=== PATIENT | female | born 1985 | race Caucasian/White ===

== ENCOUNTER → 2017-08-01 13:53 | Outpatient (CLI) | payer MEDICAID, SELFPAY ==
--- NOTE | 2017-07-31 | EMB_PTH ---
PATIENT: RAY ANGEL LOC: [facility] U#:[id number] AGE/SX: 39/F ROOM: RE08/01/[address]: Dr. Marco A Sharma MD : 1985 BED: DIS: SPEC #: [id number] RECD: 08/01/17 13:49 STATUS: CORTES AUGUSTINE #: [id number] GLADIS: 07/31/17 00:[address]: Marco A Sharma DEPT: SURGICAL PATHOLOGY RECD BY: Ervin Craig Tissues: Endometrium, NOS Procedures: Surgery Specimen Level IV HEADER OPERATION: Endometrial biopsy PRE-OP DIAGNOSIS: Uterine mass TISSUE SUBMITTED: Endometrial biopsy MICROSCOPIC DIAGNOSIS Endometrium, biopsy: Secretory endometrium. AM:scott 08/02/17 MICROSCOPIC DESCRIPTION Slides are reviewed. GROSS DESCRIPTION Received in fixative is one container labeled with the patient's name and designated endometrial biopsy. The specimen consists of multiple irregular fragments of pink-red soft tissue that in aggregate measure 2.5 x 2 x 0.2 cm. The specimen is totally submitted in one cassette. / RAMON:scott 08/01/17 TC:5 CPT: 54091
[2017-08-03 11:36] LABS: HPV Reflexed? NOT INDICATED
== END ==
PROVIDERS: Visit Provider Obstetrics & Gynecology
DX: Z12.4 Encounter for screening for malignant neoplasm of cervix (principal); N85.8 Other specified noninflammatory disorders of uterus
CPT/HCPCS: 88175; 88305; G0145

== ENCOUNTER → 2017-11-20 07:59 | Outpatient (CLI) | payer MEDICAID, SELFPAY | PROVIDERS: Family Provider Family Medicine; PCP Family Medicine; Visit Provider Obstetrics & Gynecology | DX: Z53.9 Procedure and treatment not carried out, unspecified reason (principal) ==

== ENCOUNTER → 2018-12-14 | Outpatient (CLI) | payer MEDICAID, SELFPAY ==
[2016-05-12 11:41] VITALS: BMI 23.8
[2018-12-14 10:36] LABS: Hematocrit 44.5 % (37-47); Hemoglobin 14.9 g/dL (12.0-15.0); Mean Corp Hgb Conc 33.5 g/dL (32-36); Mean Corpuscular Hgb 32.3 pg (27.0-32.0); Mean Corpuscular Volume 96.5 fL (81-99); Mean Platelet Vol. 9.3 fl (6.2-12.0); Platelet Count 243 K/mm3 (150-450); RBC Distribution Width CV 13.3 % (11.6-14.6); RBC Distribution Width SD 47.7 fl (35.1-43.9); Red Blood Count 4.61 M/mm3 (4.2-5.4); White Blood Count 9.3 K/mm3 (4.4-11.0)
== END | disposition home or self-care (01) ==
LOC: LAB 10:24
PROVIDERS: Family Provider Family Medicine; PCP Family Medicine; Referring Provider Obstetrics & Gynecology; Visit Provider Obstetrics & Gynecology
DX: R58 Hemorrhage, not elsewhere classified (principal)
CPT/HCPCS: 36415; 85027

== ENCOUNTER 2019-04-21 06:29 | Inpatient (IN) | payer MEDICAID, SELFPAY ==
[2019-04-17 14:45] LABS: Hematocrit 43.7 % (37-47); Hemoglobin 14.2 g/dL (12.0-15.0); Mean Corp Hgb Conc 32.5 g/dL (32-36); Mean Corpuscular Hgb 30.7 pg (27.0-32.0); Mean Corpuscular Volume 94.4 fL (81-99); Mean Platelet Vol. 9.8 fl (6.2-12.0); Platelet Count 246 K/mm3 (150-450); RBC Distribution Width CV 12.9 % (11.6-14.6); RBC Distribution Width SD 44.4 fl (35.1-43.9); Red Blood Count 4.63 M/mm3 (4.2-5.4); White Blood Count 8.1 K/mm3 (4.4-11.0)
[2019-04-17 14:54] LABS: International Normalized Ratio 1.1; Prothrombin Time (Protime)PT. 13.5 SECONDS (11.7-14.9)
[2019-04-17 14:55] LABS: Partial Thromboplast Time 28.7 Seconds (24.1-36.2)
[2019-04-17 15:04] LABS: Creatinine, Serum 0.79 mg/dL (0.55-1.02); EST Glomerular Filtration Rate 89 mL/min (>60); Est Glom Filt Rate - Afr Amer 108 mL/min (>60)
--- NOTE | 2019-04-20 19:03 | PCM.HP.BLA ---
History and Physical Date of Admission: 04/21/19 Surgical History and Physical Minnie Carter, a 33 year old female 3 0 0 0 3, presents for ROMULO/BS on April 21, 2018 at 7:30. -- Large Symptomatic Fibroids; Menorrhagia; Large Symptomatic Uterine Fibroid -- Pt complaint of Pelvic and abdominal pain that is random but states it gets severe and doubles her over. 7-8 cm uterine fibroids with heavy menses and pelvic pressure and pain. Discussed that HTA not appropriate for helping with her heavy menses. Bleeding excessive. Minnie claims it started gradually and occurs all the time. It is located in the vagina. It is located in the lower abdomen. Minnie characterizes it to be non-radiating. Minnie characterizes the quality bleeding from light to moderate to heavy. Severity is moderate and not improving. Additional comments are: Hgb in ER [place]; known extremely large fibroids and uterus. MEDICATIONS HISTORY: Patient is also takin. No Meds ALLERGIES: NKDA Infections - Chicken pox Illnesses - none Accidents - no injuries of consequence Hospitalizations - Childbirth Review of Systems: GENERAL - Denies fever, or chills SKIN - Denies skin changes EYES - Denies visual changes EARS - Denies difficulty hearing NOSE - Denies nasal congestion or bleeding MOUTH - Denies sore throat or difficulty swallowing NECK - Denies pain or swelling RESPIRATORY - Denies shortness of breath or wheezing CARDIOVASCULAR - Denies palpitations or chest pain GASTROINTESTINAL - Denies nausea, vomiting, diarrhea, constipation GENITOURINARY - Denies dysuria, frequency of urination, incontinence of urine MUSCULOSKELETAL - Denies joint or muscle pain NEUROLOGICAL - Denies localized numbness or weakness PSYCHIATRIC - Denies depression or anxiety ENDOCRINE - Denies heat or cold intolerance, weight loss or gain HEMATO-IMMUNOLOGIC - Denies excesive bleeding with cuts SOCIAL HISTORY: Alcohol Use - RARELY Smoking - 04/19-1 ppd ATQ Diet - no special diet Lifestyle - low stress lifestyle and single Exercise - active work Seat Belt Use - always Employer - [employer] 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 Maternal Grandmother: blood clots in legs and Cerebrovascular accident(CVA). Paternal Grandfather: from [place] and Coronary heart disease. MENSTRUAL HISTORY: LMP Known?- DefiniteAmount/Duration - 14+, Regularity - Irregular, Frequency - 14-28 days days, LMP - 04/16/18, Age Onset Menarche - 12 PAST PREGNANCIES: Total Pregnancies - 3; Full Term Pregnancies - 3; Premature - 0; Abortions, Induced - 0; Abortions, Spontaneous - 0; Ectopics - 0; Multiple Births - 0; Living Children - 3 SURGICAL HISTORY: 1. 05/15/2016 and tubal ; America Logan M.D. PHYSICAL EXAM BP- 120/72 Sitting, Right arm, regular cuff Weight- 135 lbs Height- 69 inch BMI:19.98 CONSTITUTIONAL - NAD, well nourished, and well developed SKIN - No rash, lesions, or ulcers HEENT - Normocephalic, PERRLA, EOMI NECK - No nodes, no nuchal rigidity and thyroid normal size and texture LYMPH NODES - Palpation of lymph nodes in neck and groins within normal limits LUNGS - CTA x2 without wheezes, crackles or rales CARDIAC - Regular rate and rhythm without rubs, murmurs, or gallops BREAST - deferred ABDOMEN - Without hepatosplenomegaly, distention, masses, rebound, or guarding; normal bowel sounds; no hernias EXTREMITIES - No edema or calf tenderness NEUROLOGICAL - Cranial nerves II-XII grossly intact PSYCHIATRIC - A and O to time, place, person, mood and affect DETAILED PELVIC EXAM External Genitial Vagina - non-tender without lesions Urethra/Urethral Meatus - non-tender Bladder - non-tender Vagina - vaginal sinha are pink and moist without loss of rugae and no evidence of atropy Cervix - without cervical motion tenderness and has normal size and features without evident lesions Uterus - enlarged uterus 12+ wks, wt 280-320 g Adnexa - mass c/w large fibroid noted in cul-de-sac ASSESSMENT/PLAN: 1. Leiomyoma Of Uterus, Unspecified and Menorrhagia Reviewed results of CT showing likely 6-8 cm fibroid; fibroid noted at time of last . Extremely heavy menses and painful when moving. Wants hysterectomy. Plan ROMULO/BS. Discussed RBAs. Too large for RAVH so plan abdominal hysterectomy for heavy menses and symptomatic fibroid. Aygestin taper given.
[2019-04-21] VITALS (12 sets, daily range): BP systolic 94–131; BP diastolic 57–74; PULSE 53–74; RESP 14–18; TEMP 36.5–37; O2SAT 94–100; BMI 19.1
[2019-04-21] MEDS: Lactated Ringers 1,000 ML 100 ML IV ×2 (07:17→09:30)
--- NOTE | 2019-04-21 08:30 | HYST_PTH ---
PATIENT: RAY ANGEL LOC: [facility] U#:[id number] AGE/SX: 33/F ROOM: MS311 RE04/21/[address]: Dr. Marco A Sharma MD : 1985 BED: 1 DIS: 04/22/2019 SPEC #: [id number] RECD: 04/21/19 11:07 STATUS: CORTES [place] #: [id number] GLADIS: 04/21/19 08:[address]: Marco A Sharma DEPT: SURGICAL PATHOLOGY RECD BY: Constantino Noel ENTERED: 04/21/19 13:21 SP TYPE: HYSTERECT OTHR DR: Dr. Damian Bah MD Tissues: Uterus, NOS Procedures: Surgery Specimen Level V HEADER OPERATION: Hysterectomy, ROMULO, salpingectomy PRE-OP DIAGNOSIS: Leiomyoma of uterus; menorrhagia TISSUE SUBMITTED: Uterus and bilateral fallopian tubes MICROSCOPIC DIAGNOSIS Uterus and bilateral fallopian tubes, hysterectomy and bilateral salpingectomy: Cervix - mild chronic inflammation. Endometrium - proliferative endometrium. Myometrium - intramural leiomyomas (0.2 and 8 cm in diameter). Bilateral fallopian tubes - no pathologic diagnosis. See comment. SJ:scott 04/22/19 COMMENT The larger leiomyoma also shows focal areas of symplastic change. Case has been reviewed in consultation with Dr. Thornton who concurs with the above diagnosis. IDC:AM MICROSCOPIC DESCRIPTION Slides are reviewed. GROSS DESCRIPTION Received in fixative is one container labeled with the patient's name and designated uterus and bilateral fallopian tubes. The specimen consists of a hysterectomy specimen consisting of uterus with cervix with attached bilateral fallopian tubes. The uterus with cervix weighs 330 gm and measures 14 x 10 x 7 cm. The serosal surface is torres, glistening. The ectocervical mucosa is unremarkable. The external os is oval in contour. The endocervical canal measures 3.5 cm in length and the endocervical mucosa is torres, glistening and unremarkable. The triangular endometrial cavity measures 6.5 cm in length and 3 cm in width. The endometrium is torres, glistening without any mass lesion and measures 0.1 cm in thickness. Sections of the uterine wall reveal one large nodular mass at the fundus measuring 8 cm in diameter and one smaller nodular mass in the posterior wall measuring 0.2 cm in diameter. Sections of these masses reveal torres whorled cut surfaces without areas of hemorrhage, necrosis or cystic degeneration. The uninvolved uterine wall measures up to 2 cm in thickness. The right fallopian tube measures 7 cm in length and 0.5 cm in diameter. The fimbrial end is identified. A Filshie clip is noted at the proximal end which appears intact. Sections reveal unremarkable cut surfaces. The left fallopian tube is similar in appearance to right and measures 7 cm in length and 0.6 cm in diameter. A Filshie clip is also noted in the left fallopian tube and this appears intact. Client Services Analyst sections are submitted in ten cassettes as follows: 1 - anterior cervix, 2 - posterior cervix, 3 & 4 - anterior uterine wall, 5 & 6 - posterior uterine wall (cassette 5 also contains the smaller nodular mass), 7 & 8 - larger nodular mass, 9 - right fallopian tube, 10 - left fallopian tube. / RAMON:scott 04/21/19 TC:1 CPT: 80022
--- NOTE | 2019-04-21 08:57 | PCM.OPRPT ---
Report of Operation Date of Procedure: 04/21/19 Pre-Operative Diagnosis: Symptomatic Large Uterine Fibroids Post-Operative Diagnosis: Symptomatic Large Uterine Fibroids Surgery/Procedure Performed:: Total Abdominal Hysterectomy, Bilateral Salpingectomy Description of Surgical Findings:: 16 cm fibroid uterus with normal-appearing fallopian tubes and ovaries. Evidence of bilateral tubal occlusion previously with Filshie clips. market analysis director: Neptali Lamar Type of Anesthesia:: General - Endotracheal Anesthesiologist: Sandra Denton Specimen's removed: Uterus and bilateral fallopian tubes Estimated Blood Loss (mL): 100 cc Fluids Replaced: Crystalloid Description of Procedure: Surgeon: Marco A Sharma MD, FACOG Indications: This is a 33-year-old patient who his been having problems with pelvic pressure and occasional pain when she moves. She is known to have a large uterine posterior fibroid. Given this the patient desires that we proceed with the above procedure. She has been counseled regarding the risk and indications of this procedure including the possibility of bleeding, infection, and injury to surrounding structures such as bowel bladder. All questions were answered. Procedure: Patient was taken to the operating room where after induction of general anesthesia she was prepped and draped in the usual sterile fashion. A Thompson catheter was placed. The abdomen was entered through a Pfannenstiel incision and peritoneal cavity was entered bluntly. Round ligaments were identified and ligated with 0 Vicryl suture. Mesosalpinx were ligated with 0 Vicryl suture. A bladder flap was developed and progressive bites were then taken down on either side of the uterine cervix ligating each pedicle with 0 Vicryl suture. Final bites across the vaginal cuff incorporated the uterosacral ligaments into the vaginal cuff using 0 Vicryl suture and multiple [id number] sutures were placed across the vaginal cuff. Vaginal cuff and pelvic sidewall pedicles were oversewn where necessary to achieve hemostasis. Pelvis was copiously irrigated removing all clot. Rectus abdominis muscles were reapproximated in the midline with interrupted 0 Vicryl suture. 0 PDS strata fix was used to close the fascia in a running fashion and subcutaneous tissue was copiously irrigated with saline solution before closing with 3-0 Vicryl suture. 3-0 Monocryl suture was then used in running fashion to reapproximate skin edges area and Steri-Strips placed across the incision. Patient tolerated the procedure well was taken to recovery room in satisfactory condition; sponge instrument and needle counts were all reportedly correct. Estimated blood loss for the case was minimal. Cefotan 2 g IV was given prior to beginning the operative procedure. There were no apparent complications of the surgery. Specimen to pathology was uterus and bilateral fallopian tubes. Grafts/Implants Used: None - Complications None - Admit VTE Documentation VTE Present on Admission: Yes VTE Mechan Device Prophylaxis: SCD's VTE Pharm Prophylaxis ordered?: Yes
--- NOTE | 2019-04-21 09:01 | PCM.DC.VHY ---
Discharge Diet: No Restrictions Discharge Activity: Return to Normal Activity, May Not Drive - while taking narcotic pain medications., May Shower, May Take a Tub Bath May resume sexual activity in: 6-8 weeks Call your doctor if your incision/area has: Continuous Slow Oozing, Sudden Increased Bleeding, Increased Pain/ Swelling, Increased Redness, Foul Smelling Discharge Call your doctor if you observe: Fever of 101 or Higher, Inability to urinate, Inability to have a bowel movement, Using more than one pad per hour Allergies/Adverse Reactions: Allergies No Known Allergies Allergy (Verified 04/21/19 07:08) Medications to take at Discharge Amoxicillin/Potassium Clav [Amox-Clav 875-125 mg Tablet] 1 ea PO BID 04/14/19 Ibuprofen [Ibu] 600 mg PO BID 04/14/19 Docusate Sodium [Colace] 100 mg PO BID PRN PRN #60 cap 04/21/19 Oxycodone [Oxyir] 5 mg PO Q6H PRN PRN 7 Days #14 tablet 04/21/19 The following prescriptions were given: Docusate Sodium [Colace] 100 mg PO BID PRN PRN #60 cap PRN Reason: Constipation Transmission Status: Pending to [facility] Oxycodone [Oxyir] 5 mg PO Q6H PRN PRN 7 Days #14 tablet PRN Reason: Pain Score 6-10/10 Transmission Status: Sent to [facility] Primary Care Physician: Damian Bah MD [Primary Care Provider] - Test Results: Test results from this visit will be discussed in further detail at your follow-up appointment, if applicable. Please Follow Up With: Marco A Sharma MD When: 2 to 3 weeks
[2019-04-21] MEDS: HYDROmorphone 0.5 MG/0.5 ML SYRINGE IV (12:28)
[2019-04-21] MEDS: Dextrose 5%-Lactated Ringers 1,000 ML 150 ML IV ×2 (12:33→18:56)
[2019-04-21] MEDS: Acetaminophen 500 MG Tablet 1000 MG PO (15:00)
[2019-04-21] MEDS: oxyCODONE 5 MG Tablet PO ×3 (15:00→23:02)
[2019-04-21] MEDS: Ketorolac 30 MG/ML Syringe IV ×2 (16:41→23:01)
[2019-04-21] MEDS: 0.9% Saline Lock 10 ML Syringe IV (16:45)
[2019-04-21] MEDS: Enoxaparin 30 MG/0.3 ML Syringe SC (18:57)
[2019-04-22 03:45] VITALS: BP 104/68; PULSE 53; RESP 18; TEMP 37.4; O2SAT 100
[2019-04-22] MEDS: Ketorolac 30 MG/ML Syringe IV (03:50)
[2019-04-22] MEDS: Acetaminophen 500 MG Tablet 1000 MG PO (04:15)
[2019-04-22] MEDS: 0.9% Saline Lock 10 ML Syringe IV (04:20)
[2019-04-22 05:30] LABS: Hematocrit 36.7 % (37-47); Hemoglobin 11.8 g/dL (12.0-15.0); Mean Corp Hgb Conc 32.2 g/dL (32-36); Mean Corpuscular Hgb 30.8 pg (27.0-32.0); Mean Corpuscular Volume 95.8 fL (81-99); Platelet Count 238 K/mm3 (150-450); RBC Distribution Width CV 12.9 % (11.6-14.6); RBC Distribution Width SD 45.6 fl (35.1-43.9); Red Blood Count 3.83 M/mm3 (4.2-5.4); White Blood Count 14.3 K/mm3 (4.4-11.0)
[2019-04-22 05:43] LABS: Creatinine, Serum 0.91 mg/dL (0.55-1.02)
[2019-04-22 05:44] LABS: EST Glomerular Filtration Rate 76 mL/min (>60); Est Glom Filt Rate - Afr Amer 92 mL/min (>60)
[2019-04-22 07:39] VITALS: O2SAT 99
--- NOTE | 2019-04-22 08:38 | PCM.PN.OB ---
Subjective: Patient without complaints. Tolerating diet well. Up in halls ambulating. Ready to go home. Voiding on own. - Physical Exam Vitals/I&O's: Vital Signs Temp Pulse Resp BP Pulse Ox 99.3 F H 53 L 18 104/68 100 04/22/19 03:45 04/22/19 03:45 04/22/19 03:45 04/22/19 03:45 04/22/19 03:45 Oxygen Delivery Method Room Air Weight: 136 lb 14.513 oz Body Mass Index (BMI) 19.1 Intake and Output for Last 24 Hours 04/20/19 04/21/19 04/22/19 23:59 23:59 23:59 Intake Total 3767.5 / 4267.5 500 / 500 Output Total 850 / 2350 1700 / 1700 Balance 2917.5 / 1917.5 -1200 / -1200 Comment: Is CDI. Good urine output. Hemoglobin and creatinine okay. Laboratory Results 04/22/19 05:10: WBC 14.3 H, RBC 3.83 L, Hgb 11.8 L, Hct 36.7 L, MCV 95.8, MCH 30.8, MCHC 32.2, RDW Std Deviation 45.6 H, RDW Coeff of Roberth 12.9, Plt Count 238, MPV 10.0 04/22/19 05:10: Creatinine 0.91, Estim Creat Clear Calc 86.20, Est GFR (MDRD) Af Amer 92, Est GFR (MDRD) Non-Af 76 Current Medications Acetaminophen (Tylenol) 1,000 mg PO Q8H PRN PRN PRN Reason: Pain Score 1-3/10 or Fever Last Admin: 04/22/19 04:15 Dose: 1,000 mg Documented by: Docusate Sodium (Colace) 100 mg PO BID PRN PRN PRN Reason: CONSTIPATION Hydromorphone HCl (Dilaudid Inj) 0.5 mg IV Q3H PRN PRN PRN Reason: Pain Score 4-10/10 Last Admin: 04/21/19 12:28 Dose: 0.5 mg Documented by: Dextrose/Lactated Ringer's () 1,000 mls @ 150 mls/hr IV .[id number] ROBLES Last Infusion: 04/21/19 23:00 Dose: 0 mls/hr Documented by: Sodium Chloride () 250 mls @ 15 mls/hr IV .[id number] PRN PRN Reason: Saline Flush Sodium Chloride () 250 mls @ 15 mls/hr IV .[id number] PRN PRN Reason: Additional IVPB Infusion Ketorolac Tromethamine (Toradol) 30 mg IV Q6H [facility] Stop: 04/26/19 16:31 Last Admin: 04/22/19 03:50 Dose: 30 mg Documented by: Ondansetron HCl (Zofran) 4 mg IV Q4H PRN PRN PRN Reason: NAUSEA Oxycodone HCl (Oxyir) 5 mg PO Q4H PRN PRN PRN Reason: Pain Score 4-10/10 Last Admin: 04/21/19 23:02 Dose: 5 mg Documented by: Simethicone (Mylicon) 80 mg PO [facility] Last Admin: 04/21/19 23:02 Dose: 80 mg Documented by: Sodium Chloride () 10 - 40 ml IV UD PRN PRN Reason: SALINE FLUSH Last Admin: 04/22/19 04:20 Dose: 10 ml Documented by: Medical Necessity - Tobacco Use Smoking Status: Current some day smoker Tobacco Use: Cigarettes Assessment/Plan Doing well postoperative day #1 status post total abdominal hysterectomy and bilateral salpingectomy. Will release to home with routine instructions.
[2019-04-22] MEDS: oxyCODONE 5 MG Tablet PO (08:52)
[2019-04-22 09:25] VITALS: BP 108/66; PULSE 59; RESP 16; TEMP 37.2; O2SAT 96
--- NOTE | 2019-04-22 09:59 | CASEMGMT ---
RN CM attempted to complete RN CM assessment at this time. Patient has discharge from [facility] prior to assessment. Maryt lives with significant other. Patient is established with PCP DR. Bah. No needs identified per chart review.
== END 2019-04-22 09:30 | disposition home or self-care (01) | DRG 519 ==
LOC: ACINP 06:29 → MS3 08:58
PROVIDERS: Admitting Provider Obstetrics & Gynecology; Family Provider Family Medicine; PCP Family Medicine; Referring Provider Obstetrics & Gynecology; Visit Provider Obstetrics & Gynecology
PROC: 0UT90ZZ Resection of Uterus, Open Approach (ICD-10-PCS; CPT 58150; principal; 2019-04-21 08:10)
DX: D25.1 Intramural leiomyoma of uterus (principal); N72 Inflammatory disease of cervix uteri; F17.210 Nicotine dependence, cigarettes, uncomplicated
CPT/HCPCS: 36415; 82565; 85027; 85610; 85730; 86850; 86900; 86901; 88307; 99251; 99406; J7120; A4216; G0463; J2405

== ENCOUNTER 2020-11-04 17:05 | Emergency (ER) | payer MEDICAID, SELFPAY ==
[2019-04-21 07:09] VITALS: BMI 19.1
[2020-11-04 17:06] VITALS: BP 110/78; PULSE 74; RESP 12; TEMP 36.6; O2SAT 99; BMI 18.3
--- NOTE | 2020-11-04 17:13 | EDS_ITS ---
HPI History of Present Illness Chief Complaint: Lower Extremity Injury Detail of Chief Complaint: Right foot injury prior to arrival in the emergency department Informant: patient Narrative Narrative: Patient states that she was doing some gardening when her son opened up a second story window to say hello to her and the air conditioner unit fell out of the window and struck her on the right foot. Patient was wearing tennis shoes. Patient having hard time bearing weight secondary to pain. [facility] Medical History (Updated 11/04/20 @ 18:[address] Priya Borrero, DO) History of uterine fibroid Home Medications hydrocodone-acetaminophen 1 tab PO Q4H PRN PRN 2 Days #10 tablet 11/04/20 [Rx Last Taken Unknown] Allergy/AdvReac Type Severity Reaction Status Date / Time No Known Allergies Allergy Verified 11/04/20 17:05 Surgical History (Updated 11/04/20 @ 17:24 by Cody Hoff) History of History of hysterectomy Social History Smoking Status: Current every day smoker tobacco type: cigarettes ROS ROS ED Constitutional Constitutional ED: Reports systems reviewed and no addt'l complaints, except as documented; Denies body ache(s), change in weight or chills Eyes Eyes: Denies acute decrease in peripheral vision, change in vision, double vision or loss of vision ENT ENT ED: Reports none; Denies ear pain, lip swelling, loss taste/smell, neck pain, otalgia or sore throat Cardiovascular Cardiovascular: Reports none; Denies abdominal pain, chest pain with activity, leg edema, lightheadedness, palpitations, rapid heart rate or syncope Respiratory/Chest Respiratory/Chest: Reports none; Denies change in mental status, dry cough, dyspnea, hemoptysis, shortness of breath at rest or shortness of breath with exertion Gastrointestinal Gastrointestinal: Reports none; Denies abdominal pain, change in stool character, diarrhea, hematemesis, hematochezia, melena, rectal bleeding or vomiting Genitourinary Genitourinary ED: Reports none; Denies abdominal discomfort, anuria, dysuria, genital pain or polyuria Musculoskeletal Musculoskeletal: Reports none and other Details: Right foot pain/injury ; Denies arthralgias, back pain, difficulty walking, extremity pain, muscle weakness or myalgias Integumentary Reports none; Denies abscess or rash Neurologic Neurologic: Reports none; Denies abnormal gait, confusion, focal weakness, frequent falls, headache(s), loss of vision, numbness, paresthesias, radicular pain, vertigo or weakness Psychiatric Psychiatric: Reports systems reviewed and no addt'l complaints, except as documented and none; Denies behavioral changes, confusion, difficulty concentrating, hallucinations, suicidal ideation, tactile hallucinations or visual hallucinations Endocrine Endocrinology: Denies none, cold intolerance, excessive sweating, fatigue or heat intolerance Hematologic/Lymphatic Hematologic/Lymphatic: Reports none; Denies anemia, easy bleeding or easy bruising Allergic/Immunologic Allergic/Immunologic ED: Denies as per HPI, none, lip swelling, mouth swelling, throat swelling, tongue swelling or hives EXAM Physical Exam Const Vital Signs: 11/04/20 17:06 Temperature 98 F Temperature Source Temporal Pulse Rate 74 Respiratory Rate 12 Blood Pressure 110/78 Blood Pressure Mean 88 Pulse Ox 99 Oxygen Delivery Method Room Air Positive well nourished and well developed General Appearance ED: well developed and NAD HEENT Reports TM's clear and moist mucous membranes normocephalic and atraumatic; Negative for trauma or tenderness Tympanic Membrane ED: Yes TM's clear Eyes PERRL and EOMs intact bilaterally General Eye ED: Negative for pale conjunctiva or scleral icterus Neck no lymphadenopathy, supple and no JVD General: Negative for tenderness Chest Wall inspection of chest normal and palpation of chest normal Chest: Negative for tenderness Resp normal respiratory effort and clear to auscultation bilaterally Effort and Inspection: Negative for respiratory distress or pain with movement Auscultation: Negative for rhonchi, wheezes or diminished lung sounds Cardio regular rate, regular rhythm, S1 normal heart sound, S2 normal heart sound and no murmurs Peripheral Pulses: pulses 2+ throughout GI normal to inspection, nondistended, normoactive bowel sounds, soft to palpation, non-tender, non-distended and no masses Back/Spine no CVA tenderness and no thoracic nor lumbar tenderness Extremity Extremity Narrative: Right foot-patient has soft tissue swelling as well as ecchymosis and bruising over the second and third MTP joints with tenderness palpation. No obvious deformity to the toes. Neurovascular intact distally. General Extremety ED: Negative for edema General Extremity: Negative for edema Neuro oriented x3, CN's II-XII intact bilaterally, no sensory deficits noted and gait normal Sensorium / Orientation: awake, alert, oriented to person, oriented to place and oriented to time Motor Exam: strength 5/5 throughout and strength abnormal Psych mental status grossly normal Skin no rashes or lesions noted and no wounds MDM MDM MDM Narrative Medical decision making narrative: Given a Franklin wrap, postop shoe, and crutches. Patient to weight-bear as tolerated. She is given a few Eunice for pain. She is instructed to ice and elevate extremity. Patient to follow-up with primary care physician semiconductor wafers tester for no doc within the next 5 to 7 days. Radiography Diagnostic Testing: Three-view x-rays of right foot obtained interpreted by myself as no acute fractures or dislocations. Radiology interpretation in agreement. Discharge Plan Triage Chief Complaint: Lower Extremity Injury ED Provider: Priya Borrero Dx/Rx/DC Orders Clinical Impression: Contusion of foot, right Instructions: ED Foot Contusion, ED Crush Injury, Foot/Toe Prescriptions: New hydrocodone-acetaminophen [hydrocodone-acetaminophen] 1 TABLET tablet 1 tab PO Q4H PRN PRN (Reason: Pain) 2 Days Qty: 10 RF: 0 Primary Care Provider: Damian Bah Referrals: Damian Bah MD [Primary Care Provider] - 5-7 Days Disposition Disposition: Home, Self Care
--- NOTE | 2020-11-04 17:25 | RAD_ITS ---
STUDY: X-RAY - RIGHT FOOT CLINICAL: Female, 35 years old. injury TECHNIQUE: 3 view(s) of the foot. COMPARISON: None. FINDINGS: Normal talus, calcaneus, and tarsal bones. Normal visualized subtalar, talonavicular, calcaneocuboid, tarsal and tarsometatarsal articulations. Normal metatarsi. Normal metatarsophalangeal joint of the great toe. Normal tibial and fibular sesamoid bones. Normal interphalangeal joint of the great toe. Normal phalanges of the great toe. Normal second through fifth metatarsophalangeal joints. Normal interphalangeal joints and phalanges of the lesser toes. The soft tissue structures are unremarkable. There is no demonstrated fracture. RAD/Foot min 3 Views IMPRESSION: Normal x-ray examination of the foot. Electronically Signed: Nathaniel Crane MD at 18:16 EDT , Service support ,
[2020-11-04 18:31] VITALS: RESP 16
== END 2020-11-04 18:36 | disposition home or self-care (01) ==
PROVIDERS: Emergency Provider Emergency Medicine; PCP Family Medicine
DX: S90.31XA Contusion of right foot, initial encounter (principal); F17.210 Nicotine dependence, cigarettes, uncomplicated; W20.8XXA Other cause of strike by thrown, projected or falling object, initial encounter; Y93.H2 Activity, gardening and landscaping; Y92.007 Garden or yard of unspecified non-institutional (private) residence as the place of occurrence of the external cause; Y99.8 Other external cause status
CPT/HCPCS: 73630; 99284

== ENCOUNTER 2021-05-31 16:45 | Emergency (ER) | payer MEDICAID, SELFPAY ==
[2021-05-31 16:46] VITALS: BP 147/127; PULSE 76; RESP 20; TEMP 35.7; O2SAT 98; BMI 18.1
--- NOTE | 2021-05-31 17:50 | RAD_ITS ---
STUDY: X-RAY CHEST REASON FOR EXAM: Female, 35 years old. CHEST PAIN sob TECHNIQUE: XR Chest 1 View COMPARISON: None FINDINGS: There is no demonstrated pleural abnormality. Normal size heart. Normal mediastinum and joseph. Normal visualized pulmonary arteries. Normal visualized aortic arch and descending thoracic aorta. Normal visualized thoracic spine. Normal visualized ribs, clavicles, and shoulders. There is no demonstrated abnormality of the visualized soft tissue structures of the upper abdomen. RAD/Chest 1 View (Portable) IMPRESSION: There are no acute findings. Electronically Signed: Sky Kauffman MD at 18:10 EST ,
--- NOTE | 2021-05-31 17:50 | EKG12_ITS ---
Test Reason : CP Blood Pressure : / mmHG Vent. Rate : 079 BPM Atrial Rate : 079 BPM P-R Int : 126 ms QRS Dur : 082 ms QT Int : 378 ms P-R-T Axes : 061 090 059 degrees QTc Int : 433 ms Normal sinus rhythm Normal ECG Confirmed by TATI KRUEGER, SONIA ([id number]), production editor VIKI JOSEPH ([id number]) on 06/02/2021 8:55:23 AM Referred By: ED Confirmed By:SONIA DUFFY MD
--- NOTE | 2021-05-31 17:51 | EDS_ITS ---
HPI History of Present Illness Chief Complaint: Chest Pain Informant: patient Narrative Narrative: Sudden right sided chest discomfort difficulty breathing 2 hours prior to arrival. Half pack per day smoker. States pain worsening with deep breaths. No recent travel, surgeries, or immobilizations. No history of PE or DVT. Home medications of multivitamins. Denies any marijuana use. Prior Similar Symptoms: No PFSH PFSH Medical History History of uterine fibroid Home Medications NK 05/31/21 [History Last Taken Unknown] Allergy/AdvReac Type Severity Reaction Status Date / Time No Known Allergies Allergy Verified 05/31/21 16:46 Surgical History History of History of hysterectomy Social History Smoking Status: Current every day smoker tobacco type: cigarettes ROS ROS ED Constitutional Constitutional ED: Denies chills, fever(s) or sweats Eyes Eyes: Denies change in vision ENT ENT ED: Denies dysphagia or sore throat Cardiovascular Cardiovascular: Reports chest pain; Denies leg edema, palpitations or racing heartbeat Respiratory/Chest Respiratory/Chest: Reports dyspnea; Denies cough or dyspnea on exertion Gastrointestinal Gastrointestinal: Denies abdominal pain, diarrhea, nausea or vomiting Genitourinary Genitourinary ED: Denies dysuria, hematuria or urinary frequency Musculoskeletal Musculoskeletal: Denies back pain, extremity pain or neck pain Integumentary Denies rash or wounds Neurologic Neurologic: Denies headache(s), paresthesias or weakness EXAM Physical Exam Const Vital Signs: 05/31/21 16:46 05/31/21 17:55 05/31/21 18:15 Temperature 96.2 F L Temperature Source Temporal Pulse Rate 76 70 Respiratory Rate 20 H 14 Blood Pressure 147/127 H 118/64 Blood Pressure Mean 133 82 Pulse Ox 98 100 Oxygen Delivery Method Room Air Room Air Room Air 05/31/21 19:39 05/31/21 20:57 Temperature Temperature Source Pulse Rate 65 70 Respiratory Rate 16 15 Blood Pressure 105/75 108/83 H Blood Pressure Mean 85 Pulse Ox 96 96 Oxygen Delivery Method Room Air Positive well nourished and well developed General Appearance ED: well developed and NAD HEENT Reports moist mucous membranes normocephalic and atraumatic Eyes PERRL, EOMs intact bilaterally and conjunctivae normal General Eye ED: Yes normal appearance of both eyes Neck no lymphadenopathy and supple Neck Narrative: No tracheal deviation. General: Negative for tenderness Chest Wall Chest: Negative for tenderness Resp normal air movement Resp Narrative: Decreased breath sounds on the right side of the lung compared to the left. Effort and Inspection: symmetric chest movement; Negative for respiratory distress Cardio regular rate, regular rhythm and no murmurs Peripheral Pulses: pulses 2+ throughout GI normal to inspection, nondistended, normoactive bowel sounds and non-tender Palpation: Negative for guarding or rebound tenderness present Back/Spine no CVA tenderness and no thoracic nor lumbar tenderness Extremity normal to inspection General Extremety ED: Negative for edema or tenderness General Extremity: Negative for edema Neuro oriented x3 and no sensory deficits noted Sensorium / Orientation: awake and alert Skin no rashes or lesions noted and no wounds MDM MDM MDM Narrative Medical decision making narrative: Patient with decreased breath sounds on the right side on exam she is not hypoxic. Portable chest was obtained, no pneumothorax was identified reviewed by myself and read by radiology. Labs were obtained including a D-dimer. D-dimer normal first troponin negative. She did have a leukocytosis of 18. Previously had a leukocytosis 17 in the past which has normalized. There is no pneumonia on x-ray she denies cough she denies any urinary symptoms. She denies any rash. Reevaluation at 1925, she is feeling much better she has normal breath sounds bilaterally on reevaluation. She has no abdominal pain. Awaiting 2-hour troponin for further evaluation. Repeat troponin negative. Reevaluation the patient she remains asymptomatic. No respiratory distress. She is discharged with return precautions. She will follow-up with her PCP. Patient is being discharged under pandemic conditions under declared global, national and state disaster activation, with limited medical resources. Patient and community understands this. Results discussed in layman's terms to the patient satisfaction. All questions answered in layman's terms. Patient understands importance of follow-up care as directed. Patient has been instructed to return to the ED immediately if new symptoms, problems, or questions occur. We mutually agree with the plan of disposition. The patient understand that they may call or return with any questions or concerns at any time. Lab Data Attestation: I reviewed the patient's lab results. Labs: Laboratory Results - last 24 hr 05/31/21 05/31/21 05/31/21 18:30 18:30 18:30 WBC 18.2 H RBC 4.55 Hgb 15.4 H Hct 43.9 MCV 96.5 MCH 33.8 H MCHC 35.1 RDW Std Deviation 44.4 H RDW Coeff of Roberth 12.4 Plt Count 248 MPV 9.5 Immature Gran % (Auto) 0.600 Neut % (Auto) 83.8 H Lymph % (Auto) 10.2 L [place] % (Auto) 4.7 Eos % (Auto) 0.5 Baso % (Auto) 0.2 Absolute Neuts (auto) 15.2 H Absolute Lymphs (auto) 1.86 Nucleated RBC % 0 D-Dimer Quant (PE/DVT) 0.28 Sodium 139 Potassium 4.0 Chloride 105 Carbon Dioxide 30.0 Anion Gap 4 L BUN 13 Creatinine 0.92 Estim Creat Clear Calc 79.45 Est GFR (MDRD) Af Amer 88 Est GFR (MDRD) Non-Af 73 BUN/Creatinine Ratio 14.1 Glucose 105 Calcium 9.0 Troponin I High Sens < 3 L 05/31/21 20:24 WBC RBC Hgb Hct MCV MCH MCHC RDW Std Deviation RDW Coeff of Roberth Plt Count MPV Immature Gran % (Auto) Neut % (Auto) Lymph % (Auto) [place] % (Auto) Eos % (Auto) Baso % (Auto) Absolute Neuts (auto) Absolute Lymphs (auto) Nucleated RBC % D-Dimer Quant (PE/DVT) Sodium Potassium Chloride Carbon Dioxide Anion Gap BUN Creatinine Estim Creat Clear Calc Est GFR (MDRD) Af Amer Est GFR (MDRD) Non-Af BUN/Creatinine Ratio Glucose Calcium Troponin I High Sens < 3 L Radiography Chest X-Ray - ED: 1 View, Read by ED Physician and Read by Radiologist Diagnostic Testing: Clinical Impression(s) from Imaging Studies Chest X-Ray 05/31/21 17:50 IMPRESSION: There are no acute findings. Electronically Signed: Sky Kauffman MD at 18:10 EST Reading Location ID and State: [facility] / [place] , Service support , EKG Initial EKG: Attestation: I personally reviewed and interpreted this EKG as follows: Comments: EKG: Sinus rate of 79, no ST or T wave changes. Discharge Plan Triage Chief Complaint: Chest Pain Other Complaint: Shortness of Breath ED Provider: Blayne Huber Dx/Rx/DC Orders Clinical Impression: Chest pain, Tobacco dependence Instructions: ED Chest Pain, Uncertain Cause Prescriptions: No Action NK RF: 0 Primary Care Provider: Damian Bah Referrals: Damian Bah MD [Primary Care Provider] - 3-5 Days Activity Restrictions/Additional Instructions: Negative chest x-ray. Cardiac work-up troponin negative x2. D-dimer negative. Follow-up with your doctor for further testing return if any worsening symptoms. Disposition Disposition: Home, Self Care Discharge Date/Time: 05/31/21 21:04
[2021-05-31 17:55] VITALS: BP 118/64; PULSE 70; RESP 14; O2SAT 100
[2021-05-31] MEDS: Morphine 4 MG/ML Syringe IV (18:36)
[2021-05-31 18:45] LABS: Absolute Lymphocyte Count 1.86 X10^3/uL (0.83-4.51); Absolute Neutrophil Count 15.2 X10^3/uL (2.0-7.7); Basophil# 0.04 X10^3/uL; Basophil% 0.2 % (0-1); Eosinophil# 0.09 X10^3/uL; Eosinophils% 0.5 % (0-5); Hematocrit 43.9 % (37-47); Hemoglobin 15.4 g/dL (12.0-15.0); Lymphocyte # 1.86 X10^3/ul (0.83-4.51); Lymphocyte % 10.2 % (19-41); Mean Corp Hgb Conc 35.1 g/dL (32-36); Mean Corpuscular Hgb 33.8 pg (27.0-32.0); Mean Corpuscular Volume 96.5 fL (81-99); Mean Platelet Vol. 9.5 fl (6.2-12.0); Monocyte# 0.86 X10^3/uL; Monocyte% 4.7 % (0-10); NRBC Flagged by Analyzer 0 % (0-5); Neutrophil % 83.8 % (47-70); Platelet Count 248 K/mm3 (150-450); RBC Distribution Width CV 12.4 % (11.6-14.6); RBC Distribution Width SD 44.4 fl (35.1-43.9); Red Blood Count 4.55 M/mm3 (4.2-5.4); White Blood Count 18.2 K/mm3 (4.4-11.0)
[2021-05-31 18:58] LABS: D-Dimer Quantitative (DVT/PE) 0.28 FEU/ug/m (0.27-0.49)
[2021-05-31 19:20] LABS: Anion Gap 4 (5-15); BUN 13 mg/dL (7-18); BUN/Creat Ratio 14.1 RATIO (10-20); Chloride 105 mmol/L (98-107); Creatinine, Serum 0.92 mg/dL (0.55-1.02); EST Glomerular Filtration Rate 73 mL/min (>60); Est Glom Filt Rate - Afr Amer 88 mL/min (>60); Estimated Creatinine Clearance 79.45 ml/min; Glucose 105 mg/dL (74-106); Sodium Level 139 mmol/L (136-145); Troponin-I HS < 3 pg/mL (3.0-54.0)
[2021-05-31 19:39] VITALS: BP 105/75; PULSE 65; RESP 16; O2SAT 96
[2021-05-31 20:52] LABS: Troponin-I HS < 3 pg/mL (3.0-54.0)
[2021-05-31 20:57] VITALS: BP 108/83; PULSE 70; RESP 15; O2SAT 96
== END 2021-05-31 21:04 | disposition home or self-care (01) ==
PROVIDERS: Emergency Provider Emergency Medicine; PCP Family Medicine; Visit Provider Emergency Medicine
DX: R07.9 Chest pain, unspecified (principal); F17.210 Nicotine dependence, cigarettes, uncomplicated
CPT/HCPCS: 71045; 80048; 84484; 85025; 85379; 93005; 96374; 99284; A4216

== ENCOUNTER 2022-02-08 12:08 | Emergency (ER) | payer MEDICAID, SELFPAY ==
[2022-02-08 12:08] VITALS: BP 128/69; PULSE 94; RESP 16; TEMP 37; O2SAT 98; BMI 18.8
--- NOTE | 2022-02-08 12:13 | EKG12_ITS ---
Test Reason : SOB Blood Pressure : / mmHG Vent. Rate : 095 BPM Atrial Rate : 095 BPM P-R Int : 136 ms QRS Dur : 086 ms QT Int : 326 ms P-R-T Axes : 047 075 041 degrees QTc Int : 409 ms Normal sinus rhythm Normal ECG Confirmed by JONATHAN KRUEGER, NEIDA ([id number]), editor sound VIKI JOSEPH ([id number]) on 02/10/2022 2:07:05 P M Referred By: JOSE/EARNEST Confirmed By:DANA CASTILLO MD
--- NOTE | 2022-02-08 12:13 | RAD_ITS ---
STUDY: X-RAY CHEST REASON FOR EXAM: Female, 36 years old. Chest pain TECHNIQUE: Single AP portable view of the chest. COMPARISON: Comparison is made with prior study dated 05/31/2021. FINDINGS: Hyperinflation. Stable scattered calcified granulomas. There is no demonstrated pleural abnormality. Normal size heart. Normal mediastinum and joseph. Normal visualized pulmonary arteries. Normal visualized aortic arch and descending thoracic aorta. Normal visualized thoracic spine. Normal visualized ribs, clavicles, and shoulders. There is no demonstrated abnormality of the visualized soft tissue structures of the upper abdomen. RAD/Chest 1 View (Portable) IMPRESSION: Normal x-ray examination of the chest. Electronically Signed: Sergio Cooper MD at 13:05 EDT ,
--- NOTE | 2022-02-08 13:00 | NURSING ---
This RN went in to assess pt, prior to assuming care, pt was reported to be difficult- complaining of blood sample hemolyzing, not wanting to be stuck, expressing a big fear of needles and exhibiting high anxiety r/t being in the hospital. Pt also states I need to be out of here at 3 o'clock, no later, I need to get my kids. This RN questioned if pt had a backup plan for if workup indicated that she needed to stay to be treated in the hospital, to which she did not have an answer. To ease frustration and anxiety r/t blood draw and ER workup, this RN explained that I would wait until the MD officially evaluated her before I would start and IV line/labs. Pt was aggreeable to this. bus monitor placed d/t chief complaint which showed NSR and continued stable VS. Will monitor.
--- NOTE | 2022-02-08 13:05 | NURSING ---
CHEMISTRIES HEMOLIZED
[2022-02-08 13:28] VITALS: O2SAT 100
[2022-02-08 14:08] VITALS: BP 99/63; PULSE 96; RESP 16; O2SAT 99
--- NOTE | 2022-02-08 15:05 | ED.VIS.CHEST ---
HPI History of Present Illness Chief Complaint: Chest Pain Informant: patient Narrative Narrative: Patient started having pain in her left chest yesterday, and she said she had a low-grade fever. The fevers are gone. She states she has a cough but it is only because my chest hurts so bad. She states that hurts to breathe and worse to move. Trying to get answers to my questions is limited, because the patient is so upset that she has been in the ER for several hours prior to me seeing her, and she is afraid that she could be dying and people are not focusing on her. She has never had a history of a blood clot that she knows of. She states she was told in urgent care that she could have 1 here. She states she was told in the past that she had pleurisy when she had discomfort similar to this. She has had no pain or swelling in either one of her legs lately. [facility] Medical History History of uterine fibroid Home Medications levofloxacin 750 mg tablet 750 mg PO Q24H #5 tabs 02/08/22 [Rx Last Taken Unknown] tramadol 50 mg tablet 50 mg PO Q6H PRN pain 3 days #10 tabs 02/08/22 [Rx Last Taken Unknown] Allergy/AdvReac Type Severity Reaction Status Date / Time No Known Allergies Allergy Verified 02/08/22 12:08 Surgical History History of History of hysterectomy Social History Smoking Status: Current every day smoker tobacco type: cigarettes ROS ROS ED Constitutional Constitutional ED: Reports fever(s); Denies chills Eyes Eyes: Denies change in vision or diplopia ENT ENT ED: Denies rhinorrhea or sore throat Cardiovascular Cardiovascular: Reports chest pain; Denies palpitations Respiratory/Chest Respiratory/Chest: Reports cough and dyspnea Gastrointestinal Gastrointestinal: Denies abdominal pain, diarrhea, nausea or vomiting Genitourinary Genitourinary ED: Denies dysuria or hematuria Musculoskeletal Musculoskeletal: Denies back pain or neck pain Integumentary Denies abscess or rash Neurologic Neurologic: Denies headache(s), paresthesias or weakness Psychiatric Psychiatric: Denies anxiety or suicidal thoughts EXAM Physical Exam Const Vital Signs: 02/08/22 12:08 02/08/22 13:02 02/08/22 13:28 Temperature 98.6 F Temperature Source Temporal Pulse Rate 94 Respiratory Rate 16 Respiratory Effort Normal Short of Breath Blood Pressure 128/69 H Blood Pressure Mean 88 Pulse Ox 98 100 Oxygen Delivery Method Room Air Room Air 02/08/22 14:08 02/08/22 16:47 Temperature Temperature Source Pulse Rate 96 87 Respiratory Rate 16 17 Respiratory Effort Blood Pressure 99/63 108/59 L Blood Pressure Mean 75 75 Pulse Ox 99 100 Oxygen Delivery Method Room Air Room Air Positive well nourished and well developed General Appearance ED: well developed and NAD HEENT Reports moist mucous membranes normocephalic and atraumatic Eyes PERRL and EOMs intact bilaterally Neck full ROM and supple Chest Wall inspection of chest normal Chest Narrative: Tender left upper chest wall but not in the lower chest wall, she is having pain diffusely and into the left neck and shoulder blade area, which are nontender Resp normal respiratory effort and clear to auscultation bilaterally Resp Narrative: Occasional minor nonproductive cough, nothing bronchitic. Effort and Inspection: able to speak in complete sentences Cardio regular rate, regular rhythm and no murmurs Rate: Negative for tachycardic GI non-distended GI Narrative: Mildly tender left upper quadrant without guarding or rebound. No palpable splenomegaly. Auscultation: normoactive bowel sounds Palpation: soft Back/Spine no CVA tenderness General Back: other FROM Extremity normal to inspection and no calf tenderness General Extremety ED: Negative for edema, pulses abnormal or tenderness General Extremity: Negative for edema or pulses abnormal Neuro oriented x3, CN's II-XII intact bilaterally and no sensory deficits noted Sensorium / Orientation: awake and alert Motor Exam: strength 5/5 throughout Psych Psych Narrative: Extremely angry. Verbally rude to myself and staff. Redirectable later. Skin no rashes or lesions noted and no wounds MDM MDM MDM Narrative Medical decision making narrative: Despite the patient's sharpness of tone, I explained to her that she is not dying and that I have reviewed her EKG and chest x-ray both of which are normal, as well as her vital signs. I have explained to her the test that I plan on obtaining and how interpret them, in order to help her, and offered her analgesics. She made the encounter very difficult because of being extremely rude and sarcastic, but I attempted to explain these things to her before leaving the room. I ordered her Toradol IM because she was tired of getting poked for blood, nurses told me she was difficult stick and she refused further attempts. Nurses were able to get an IV. The Toradol was given IV, and after her blood started coming back showing a slightly elevated D-dimer and a leukocytosis, I obtained CT angiography of the chest to evaluate for pulmonary embolus, occult pneumonia, in addition to CT of the abdomen/pelvis to evaluate for possible Kehr sign related to the spleen as etiology for her symptoms, and/or other possibly related etiologies for all of this. The results of the scans are noted, basically occult left lower lobe pneumonia. Given doses of Rocephin and Levaquin IV, not septic although she does have a significant leukocytosis related to this, and she is not hypoxic. She can be treated adequately as an outpatient, given prescription for Levaquin. Happy to prescribe her something for pain as well as antibiotic. Her chest discomfort is likely due to the infiltrate. No pulmonary embolus seen on CT angiography. Normal spleen on CT abdomen/pelvis. Her COVID is negative. Lab Data Attestation: I reviewed the patient's lab results. Labs: Laboratory Results - last 24 hr 02/08/22 02/08/22 02/08/22 12:35 12:35 15:18 WBC Cancelled 24.3 H Corrected WBC Cancelled RBC Cancelled 4.37 Hgb Cancelled 14.0 Hct Cancelled 41.2 MCV Cancelled 94.3 MCH Cancelled 32.0 MCHC Cancelled 34.0 RDW Std Deviation Cancelled 42.4 RDW Coeff of Roberth Cancelled 12.2 Plt Count Cancelled 234 MPV Cancelled 9.9 Immature Gran % (Auto) Cancelled 0.900 Neut % (Auto) Cancelled 88.4 H Lymph % (Auto) Cancelled 4.4 L [place] % (Auto) Cancelled 6.1 Eos % (Auto) Cancelled 0.0 Baso % (Auto) Cancelled 0.2 Absolute Neuts (auto) Cancelled 21.5 H Absolute Lymphs (auto) Cancelled 1.08 Total Counted Cancelled Neutrophils % (Manual) Cancelled Band Neutrophils % Cancelled Lymphocytes % (Manual) Cancelled Monocytes % (Manual) Cancelled Eosinophils % (Manual) Cancelled Basophils % (Manual) Cancelled Metamyelocytes % Cancelled Myelocytes % Cancelled Promyelocytes % Cancelled Blast Cells % Cancelled Plasma Cell % (Manual) Cancelled Other Cells % Cancelled Nucleated RBC % Cancelled 0 Nucleated RBCs/100 WBC Cancelled Differential Comment Cancelled Diff Path Review Cancelled Hypersegmented Neuts Cancelled Atypical Lymphocytes Cancelled Reactive Lymphocytes Cancelled Smudge Cells Cancelled Toxic Granulation Cancelled Toxic Vacuolation Cancelled Dohle Bodies Cancelled Micki Rods Cancelled Platelet Estimate Cancelled ADEQUATE Plt Morphology Comment Cancelled RBC Morphology Cancelled NORM C+C Polychromasia Cancelled Hypochromasia Cancelled Poikilocytosis Cancelled Basophilic Stippling Cancelled Anisocytosis Cancelled Microcytosis Cancelled Macrocytosis Cancelled Spherocytes Cancelled Sickle Cells Cancelled Target Cells Cancelled Tear Drop Cells Cancelled Ovalocytes Cancelled Stomatocytes Cancelled [place] Bodies Cancelled Sanchez Cells Cancelled Bite Cells Cancelled Crenated Cell Cancelled Acanthocytes (Spur) Cancelled Rouleaux Cancelled Schistocytes Cancelled D-Dimer Quant (PE/DVT) Sodium Cancelled Potassium Cancelled Chloride Cancelled Carbon Dioxide Cancelled Anion Gap Cancelled BUN Cancelled Creatinine Cancelled Estim Creat Clear Calc Cancelled Est GFR (MDRD) Af Amer Cancelled Est GFR (MDRD) Non-Af Cancelled BUN/Creatinine Ratio Cancelled Glucose Cancelled Calcium Cancelled Troponin I High Sens Cancelled 02/08/22 02/08/22 15:18 15:18 WBC Corrected WBC RBC Hgb Hct MCV MCH MCHC RDW Std Deviation RDW Coeff of Roberth Plt Count MPV Immature Gran % (Auto) Neut % (Auto) Lymph % (Auto) [place] % (Auto) Eos % (Auto) Baso % (Auto) Absolute Neuts (auto) Absolute Lymphs (auto) Total Counted Neutrophils % (Manual) Band Neutrophils % Lymphocytes % (Manual) Monocytes % (Manual) Eosinophils % (Manual) Basophils % (Manual) Metamyelocytes % Myelocytes % Promyelocytes % Blast Cells % Plasma Cell % (Manual) Other Cells % Nucleated RBC % Nucleated RBCs/100 WBC Differential Comment Diff Path Review Hypersegmented Neuts Atypical Lymphocytes Reactive Lymphocytes Smudge Cells Toxic Granulation Toxic Vacuolation Dohle Bodies Micki Rods Platelet Estimate Plt Morphology Comment RBC Morphology Polychromasia Hypochromasia Poikilocytosis Basophilic Stippling Anisocytosis Microcytosis Macrocytosis Spherocytes Sickle Cells Target Cells Tear Drop Cells Ovalocytes Stomatocytes [place] Bodies Sanchez Cells Bite Cells Crenated Cell Acanthocytes (Spur) Rouleaux Schistocytes D-Dimer Quant (PE/DVT) 0.63 H* Sodium 137 Potassium 3.4 L Chloride 106 Carbon Dioxide 25.0 Anion Gap 6 BUN 8 Creatinine 0.69 Estim Creat Clear Calc 108.96 Est GFR (MDRD) Af Amer 123 Est GFR (MDRD) Non-Af 102 BUN/Creatinine Ratio 11.6 Glucose 98 Calcium 9.0 Troponin I High Sens < 3 L Radiography Chest X-Ray - ED: 1 View, Read by ED Physician, Normal and No Infiltrates Diagnostic Testing: Clinical Impression(s) from Imaging Studies Chest X-Ray 02/08/22 12:13 IMPRESSION: Normal x-ray examination of the chest. Electronically Signed: Sergio Cooper MD at 13:05 EDT , Abdomen/Pelvis CT 02/08/22 16:27 IMPRESSION: (NOT LISTED IN ORDER OF SIGNIFICANCE) There is an infiltrate in the superior segment of the left lower lobe consistent for a pneumonia. Enlarged liver. Other findings as above. Electronically Signed: Sky Kauffman MD at 17:09 EDT , Chest CTA 02/08/22 16:27 IMPRESSION: 1. No demonstrated pulmonary embolism or arterial dissection. 2. There is an infiltrate in the superior segment of the left lower lobe consistent for a pneumonia. Electronically Signed: Sky Kauffman MD at 17:04 EDT , Rhythm Strip Rhythm Strip: Sinus Rhythm Rate: 95 Ectopy: None EKG Initial EKG: Attestation: I personally reviewed and interpreted this EKG as follows: Interpretation: Sinus Rhythm and No Acute Injury Pattern Comments: normal EKG Discharge Plan Triage Chief Complaint: Chest Pain ED Provider: Kimo Le Dx/Rx/DC Orders Clinical Impression: Left lower lobe pneumonia, Left-sided chest pain Instructions: ED Pneumonia (Adult) Prescriptions: New levofloxacin 750 mg tablet 750 mg PO Q24H Qty: 5 0RF tramadol 50 mg tablet 50 mg PO Q6H PRN (Reason: pain) 3 Days Qty: 10 0RF Primary Care Provider: Damian Bah Referrals: Damian Bah MD [Primary Care Provider] - 3-5 Days (For reevaluation) Activity Restrictions/Additional Instructions: When you receive the prescription for antibiotic, take the first dose evening of 02/09 since she received a dose IV in the emergency department. Disposition Disposition: Home, Self Care
--- NOTE | 2022-02-08 15:25 | ED.RN ---
While IV started in right ac by this nurse patient very angry and yelling. Patient states that she is very upset that she has been waiting 3 hours and just now saw the doctor. Patient also stating that the doctor yelled and said the word fuck. Patient yelling at this nurse becoming more agitated about having iv start. This nurse attempted to explain why hemolysis happens and the reason for drawing blood work again. Patient agrees to allow this nurse to start IV. 20g IV placed in right ac. Patient requesting to be seen by different MD stating I don't want that alex feldman doctor back in here. Patient requesting Toradol changed to IV. This nurse reported this requests to Dr. Le.
[2022-02-08] MEDS: Ketorolac 30 MG/ML Syringe IV (15:33)
[2022-02-08 15:38] LABS: Absolute Lymphocyte Count 1.08 X10^3/uL (0.83-4.51); Absolute Neutrophil Count 21.5 X10^3/uL (2.0-7.7); Basophil# 0.04 X10^3/uL; Basophil% 0.2 % (0-1); Eosinophil# 0.01 X10^3/uL; Hematocrit 41.2 % (37-47); Lymphocyte # 1.08 X10^3/ul (0.83-4.51); Lymphocyte % 4.4 % (19-41); Mean Corpuscular Volume 94.3 fL (81-99); Mean Platelet Vol. 9.9 fl (6.2-12.0); Monocyte# 1.47 X10^3/uL; Monocyte% 6.1 % (0-10); NRBC Flagged by Analyzer 0 % (0-5); Neutrophil # 21.46 X10^3/uL (2.7-7.7); Neutrophil % 88.4 % (47-70); POSITIVE DIFFERENTIAL YES; Platelet Count 234 K/mm3 (150-450); RBC Distribution Width CV 12.2 % (11.6-14.6); RBC Distribution Width SD 42.4 fl (35.1-43.9); Red Blood Count 4.37 M/mm3 (4.2-5.4); White Blood Count 24.3 K/mm3 (4.4-11.0)
[2022-02-08 15:40] LABS: Differential Indicated SCAN CRITERIA MET
[2022-02-08 15:56] LABS: Anion Gap 6 (5-15); BUN 8 mg/dL (7-18); BUN/Creat Ratio 11.6 RATIO (10-20); Chloride 106 mmol/L (98-107); Creatinine, Serum 0.69 mg/dL (0.55-1.02); EST Glomerular Filtration Rate 102 mL/min (>60); Est Glom Filt Rate - Afr Amer 123 mL/min (>60); Estimated Creatinine Clearance 108.96 ml/min; Glucose 98 mg/dL (74-106); Potassium 3.4 mmol/L (3.5-5.1); Sodium Level 137 mmol/L (136-145); Troponin-I HS < 3 pg/mL (3.0-54.0)
[2022-02-08 16:15] LABS: D-Dimer Quantitative (DVT/PE) 0.63 FEU/ug/m (0.27-0.49)
--- NOTE | 2022-02-08 16:27 | CT_ITS ---
STUDY: CT Abdomen And Pelvis W/ Contrast Injection 02/08/2022 5:06 PM REASON FOR EXAM: Female, 36 years old. ABDOMINAL PAIN luq pain Technologist Notes PT WITH COUGH, FEVER, SOB. LEFT SIDED CHEST PAIN SINCE YESTERDAY AFTERNOON TECHNIQUE: Transaxial images were obtained without oral contrast, and IV 100mL [id number]-300 intravenous contrast. Individualized dose optimization techniques were used for this CT. COMPARISON: None. FINDINGS: There is an infiltrate in the superior segment of the left lower lobe consistent for a pneumonia. The visualized portions of the heart are within normal limits. There is hepatomegaly with diffuse hepatic enlargement. Unremarkable gallbladder and extrahepatic biliary system. Unremarkable spleen. Unremarkable pancreas. There is periportal edema noted. Unremarkable bilateral adrenal glands. No acute findings of the right kidney. No acute findings of the left kidney. Unremarkable visualized stomach. Unremarkable small intestine. Unremarkable colon. The appendix is visualized and appears unremarkable. There are no acute findings of the abdominal aorta. Unremarkable inferior vena cava. Subcentimeter mesenteric lymph nodes. Unremarkable urinary bladder. There is absence of the uterus consistent with a prior hysterectomy. There is an umbilical hernia containing fat. Unremarkable osseous structures. CT/Abdomen/Pelvis W IV Cont ONLY IMPRESSION: (NOT LISTED IN ORDER OF SIGNIFICANCE) There is an infiltrate in the superior segment of the left lower lobe consistent for a pneumonia. Enlarged liver. Other findings as above. Electronically Signed: Sky Kauffman MD at 17:09 EDT ,
--- NOTE | 2022-02-08 16:27 | CT_ITS ---
EXAM: CT ANGIOGRAPHY CHEST WITHOUT AND WITH INTRAVENOUS CONTRAST CLINICAL INDICATION: chest pain, elevated d-dimer TECHNIQUE: Helically acquired angiography images were obtained of the chest without and with intravenous contrast. This CT exam was performed using one or more of the following dose reduction techniques: automated exposure control, adjustment of the mA and/or kV according to patient size, and/or use of iterative reconstruction technique. This report was created using [employer] report generation technology. MIP reconstructed images were created and reviewed. CONTRAST: IV 100mL [id number] RADIATION DOSE: CTDIvol = 7.31 mGy, DLP = 612.15 mGy-cm COMPARISON: None. FINDINGS: PULMONARY ARTERIES: No demonstrated pulmonary embolism or arterial dissection. AORTA: Unremarkable. Normal in caliber. No evidence of dissection. GREAT VESSELS OF AORTIC ARCH: Unremarkable. Normal in caliber. No evidence of dissection. LUNGS AND PLEURAL SPACES: There is an infiltrate in the superior segment of the left lower lobe consistent for a pneumonia. No mass. No pleural effusion or thickening. HEART: Unremarkable. Heart size is normal. No pericardial effusion. No signs of right heart strain, ratio of right ventricle to left ventricle measures less than 1. MEDIASTINUM: Unremarkable. No mediastinal or hilar adenopathy. Esophagus is unremarkable. No hiatal hernia. THYROID: Unremarkable. No thyroid lesions. BONES/JOINTS: Unremarkable. No suspicious lytic or blastic abnormality. CT/CTA Chest W/WO Contrast IMPRESSION: 1. No demonstrated pulmonary embolism or arterial dissection. 2. There is an infiltrate in the superior segment of the left lower lobe consistent for a pneumonia. Electronically Signed: Sky Kauffman MD at 17:04 EDT ,
[2022-02-08] MEDS: 0.9% Normal Saline 1,000 ML 999 ML IV (16:30)
[2022-02-08 16:34] LABS: Platelet Estimate ADEQUATE (ADEQ); Red Cell Morphology NORM C+C NORMAL (NORM C&C)
[2022-02-08 16:47] VITALS: BP 108/59; PULSE 87; RESP 17; O2SAT 100
[2022-02-08] MEDS: Ceftriaxone 1 GM/50 ML BAG IV (17:27)
[2022-02-08] MEDS: levoFLOXacin IV 750 MG/150 ML BAG 100 MG IV (17:59)
[2022-02-08 18:17] VITALS: BP 105/52; PULSE 88; RESP 16; O2SAT 98
== END 2022-02-08 19:25 | disposition home or self-care (01) ==
PROVIDERS: Emergency Provider Emergency Medicine; PCP Family Medicine; Visit Provider Emergency Medicine
DX: J18.9 Pneumonia, unspecified organism (principal); R07.9 Chest pain, unspecified; F17.210 Nicotine dependence, cigarettes, uncomplicated; Z20.822 Contact with and (suspected) exposure to COVID-19
CPT/HCPCS: 71045; 71275; 74177; 80048; 84484; 85025; 85379; 87811; 93005; 96365; 96367; 96375; 99284; J7030; Q9967; A4216